=== PATIENT | male | born 1985 | race Caucasian/White ===

== ENCOUNTER 2018-09-27 18:00 | Emergency (ER) | payer OTHER ==
[~2018-09-27] VITALS: Ht 172.7 cm; Wt 77.5 kg
[2018-09-27 18:20] VITALS: BP 108/72
[2018-09-27] MEDS ORDERED: DIPH,PERTUSS(ACELL),TET VAC/PF 0.5 ML IM-VACC ONE ×2 (18:36→19:00)
[2018-09-27] MEDS ORDERED: LIDOCAINE 1%-EPI 1:100K, 30ML SQ ONE (19:00)
== END 2018-09-27 20:25 | disposition home or self-care (01) ==
LOC: ED 20:19
DX: S91.012A Laceration without foreign body, left ankle, initial encounter (principal); F17.200 Nicotine dependence, unspecified, uncomplicated; W45.8XXA Other foreign body or object entering through skin, initial encounter; Y93.89 Activity, other specified; Y92.094 Garage of other non-institutional residence as the place of occurrence of the external cause; Y99.8 Other external cause status
CPT/HCPCS: 12032; 73630; 90471; 90715; 99284; J3490